=== PATIENT | male | born 1950 | race American Indian/Alaskan Native ===

== ENCOUNTER 2020-04-28 13:08 | Outpatient (CLI) | payer MEDICARE ==
--- NOTE | 2020-04-28 14:41 | XRay Report ---
RIGHT HIP 3 VIEWS INDICATION / CLINICAL INFORMATION: PAIN IN RT HIP. COMPARISON: None available. FINDINGS: Moderately advanced degenerative change in the right hip joint. No other significant skeletal abnorma lity Signer Name: Janes Montana MD FACR Signed: 04/28/2020 2:36 PM Workstation Name: [id number]
== END 2020-04-28 13:09 | disposition home or self-care (01) ==
LOC: XRAY 13:08
PROVIDERS: ATTEND Orthopaedic Surgery
DX: M16.11 Unilateral primary osteoarthritis, right hip (principal)

== ENCOUNTER 2020-06-09 09:00 | Outpatient (CLI) | payer MEDICARE ==
[2020-06-09 11:07] VITALS: BP 158/89
[2020-06-09 12:05] LABS: Hematocrit 44.9 % (35.5-45.6); Hemoglobin 15.1 gm/dl (11.8-15.2); Mean Corpuscular HGB Conc 34 % (32-34); Mean Corpuscular Volume 91 fl (84-94); Platelet Count 219 K/mm3 (140-440); Red Blood Count 4.95 M/mm3 (3.65-5.03); Red Cell Distribution Width 13.6 % (13.2-15.2)
[2020-06-09 12:16] LABS: BUN/Creatinine Ratio 9; Blood Urea Nitrogen 8 mg/dL (9-20); Calcium 9.3 mg/dL (8.4-10.2); Hemolysis Index 5
[2020-06-12] MEDS ORDERED: ceFAZolin/Water 2 GM/20 ML 2 GM/20 ML SYRINGE IV NR (00:01)
== END 2020-06-09 10:30 | disposition home or self-care (01) ==
LOC: LAB 09:00 → EDSTATUS 06-12 08:00
PROVIDERS: ATTEND Orthopaedic Surgery
DX: M16.11 Unilateral primary osteoarthritis, right hip (principal); M86.9 Osteomyelitis, unspecified; D64.9 Anemia, unspecified; Z20.822 Contact with and (suspected) exposure to COVID-19
CPT/HCPCS: 36415; 80048; 85027; U0003

== ENCOUNTER 2020-09-15 12:56 | Outpatient (CLI) | payer MEDICARE ==
--- NOTE | 2020-09-15 14:50 | XRay Report ---
LEFT HIP 3 VIEWS INDICATION: M16.11 M25.551. 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 The hardware appears well applied. No ev idence for dislocation, loosening or infection. There are moderate osteoarthritic changes at the lef t hip. No acute osseous findings or osteonecrosis. Signer Name: Morgan Harris Jr, MD Signed: 09/15/2020 2:46 PM Workstation Name: [id number]
== END 2020-09-15 12:57 | disposition home or self-care (01) ==
LOC: XRAY 12:56
PROVIDERS: ATTEND Orthopaedic Surgery
DX: M16.12 Unilateral primary osteoarthritis, left hip (principal); M16.11 Unilateral primary osteoarthritis, right hip